=== PATIENT | female | born 1995 | race Caucasian/White ===

== ENCOUNTER 2022-01-04 13:54 | Emergency (ER) | payer OTHER ==
[~2022-01-04] VITALS: Ht 152.4 cm; Wt 67.0 kg
[2022-01-04] MEDS ORDERED: SUCRALFATE 1 GM TAB PO ONE (15:00)
[2022-01-04] MEDS ORDERED: GI COCKTAIL 50ML BTL(HYOSCYAMINE/MAALOX/LIDOCAINE VISCOUS)(1:3:1) PO ONE (15:00)
[2022-01-04] MEDS ORDERED: NAPROXEN 250 MG TAB PO ONE (15:00)
[2022-01-04] MEDS ORDERED: LIDOCAINE 5% (LIDODERM) PATCH TD ONE (15:05)
[2022-01-04 15:39] LABS: BASO # 0.1 10^3/uL (0.0-0.2); BASO % 0.7 % (0.0-1.0); EOS # 0.1 10^3/uL (0.0-0.5); EOS % 0.7 % (0.0-3.0); HEMATOCRIT 36.5 % (36.0-47.0); HEMOGLOBIN 11.4 g/dl (12.0-15.5); LYMPH # 2.3 10^3/uL (1.5-5.0); LYMPH % 25.4 % (24.0-44.0); MEAN CORPUSCULAR HEMOGLOBIN 24.7 pg (27.0-33.0); MEAN CORPUSCULAR HGB CONC 31.2 g/dl (32.0-36.5); MONO # 0.4 10^3/uL (0.0-0.8); MONO % 4.8 % (2.0-8.0); NEUTROPHILS # 6.1 10^3/uL (1.5-8.5); NEUTROPHILS % 68.1 % (36.0-66.0); PLATELET COUNT, AUTOMATED 210 10^3/uL (150-450); RED BLOOD COUNT 4.62 10^6/uL (4.00-5.40)
[2022-01-04 16:14] LABS: CK-MB VALUE MASS < 1.0 NG/ML (<3.6); CPK CREATINE PHOSPHOKINASE 66 U/L (26-192); MB/CK RELATIVE INDEX 1.52 (< OR =4)
[2022-01-04 16:21] LABS: ALBUMIN 3.9 GM/DL (3.2-5.2); BILIRUBIN,DIRECT 0.1 MG/DL (0.0-0.2); BILIRUBIN,TOTAL 0.3 MG/DL (0.2-1.0); FREE T4 0.91 NG/DL (0.76-1.46); THYROID STIMULATING HORMONE 1.59 uIU/ML (0.358-3.740); TOTAL PROTEIN 7.8 GM/DL (6.4-8.2)
[2022-01-04 17:32] VITALS: BP 133/81
[2022-01-05] MEDS ORDERED: **NOTE PATIENT COMMENT** MISC XX ONE (03:00)
== END 2022-01-04 17:50 | disposition home or self-care (01) ==
LOC: M ED 13:54
DX: R07.9 Chest pain, unspecified (principal); Z82.49 Family history of ischemic heart disease and other diseases of the circulatory system; Z91.040 Latex allergy status

== ENCOUNTER 2022-10-10 10:37 | Emergency (ER) | payer OTHER ==
[~2022-10-10] VITALS: Ht 154.9 cm; Wt 63.9 kg
[2022-10-10 12:02] LABS: BASO # 0.1 10^3/uL (0.0-0.2); BASO % 0.7 % (0.0-1.0); EOS % 0.4 % (0.0-3.0); HEMATOCRIT 35.1 % (36.0-47.0); HEMOGLOBIN 10.9 g/dl (12.0-15.5); LYMPH # 2.4 10^3/uL (1.5-5.0); LYMPH % 33.9 % (24.0-44.0); MEAN CORPUSCULAR HEMOGLOBIN 25.2 pg (27.0-33.0); MEAN CORPUSCULAR HGB CONC 31.1 g/dl (32.0-36.5); MEAN CORPUSCULAR VOLUME 81.1 fl (80.0-96.0); MONO # 0.3 10^3/uL (0.0-0.8); MONO % 4.8 % (2.0-8.0); NEUTROPHILS # 4.3 10^3/uL (1.5-8.5); NEUTROPHILS % 59.9 % (36.0-66.0); PLATELET COUNT, AUTOMATED 196 10^3/uL (150-450); RED BLOOD COUNT 4.33 10^6/uL (4.00-5.40); WHITE BLOOD COUNT 7.1 10^3/uL (4.0-10.0)
[2022-10-10 12:16] LABS: ERYTHROCYTE SEDIMENTATION RATE 42 mm/hr (0-20)
[2022-10-10] MEDS ORDERED: NS 1,000 ML IV ONE (12:40)
[2022-10-10] MEDS ORDERED: KETOROLAC 30 MG/ML 1ML VIAL IV ONE (12:40)
[2022-10-10] MEDS ORDERED: AMPICILLIN SOD/SULBACTAM SOD 3 GM in D5W MINI-BAG PLUS 100 ML IV ONE (12:40)
[2022-10-10] MEDS ORDERED: CLONI1TA PO (12:51)
[2022-10-10] MEDS ORDERED: ISOVUE-370 76% 100ML VIAL As Ordered ONE (12:56)
[2022-10-10] MEDS ORDERED: LORazepam 2 MG/ML 1ML VIAL IV STA (13:19)
[2022-10-10] MEDS ORDERED: dexAMETHasone 20MG/5ML VIAL IV ONE (14:45)
[2022-10-10] MEDS ORDERED: AMOX875T2 PO (14:45)
[2022-10-10 14:59] VITALS: BP 102/57; TEMP 98; O2SAT 97
== END 2022-10-10 15:19 | disposition home or self-care (01) ==
LOC: M ED 10:37
DX: L03.211 Cellulitis of face (principal); Z91.040 Latex allergy status; Z79.899 Other long term (current) drug therapy
CPT/HCPCS: 70487; 80047; 84702; 85025; 85652; 86140; 87040; 96365; 96375; 99284; J0295; J1885; J2060; Q9967

== ENCOUNTER 2023-04-23 08:35 | Emergency (ER) | payer OTHER ==
[~2023-04-23] VITALS: Ht 154.9 cm; Wt 64.2 kg
[~2023-04-23 08:35] MED LIST: AMOX875T2 PO; CLONI1TA PO
[2023-04-23 08:36] VITALS: BP 121/76; TEMP 96.8; O2SAT 99
[2023-04-23 10:10] LABS: URINE PREG TEST NEGATIVE (NEGATIVE)
[2023-04-23] MEDS ORDERED: CRAN450T4 PO (11:06)
[2023-04-23] MEDS ORDERED: MACR100C43 PO (11:14)
== END 2023-04-23 11:36 | disposition home or self-care (01) ==
LOC: M ED 08:35 → EEVIPCON 08:35 → M ED 11:36
DX: N39.0 Urinary tract infection, site not specified (principal); Z91.040 Latex allergy status